=== PATIENT | male | born 1945 | race Caucasian/White ===

== ENCOUNTER 2016-11-23 13:00 | Inpatient (IN) | payer MEDICARE ==
[2016-12-04] MEDS ORDERED: Sodium Chloride 0.9% 10 ML ONE (08:58)
[2016-12-04] MEDS ORDERED: Fentanyl 100 MCG/2 ML VIAL ONE ×5 (09:06→11:44)
[2016-12-04] MEDS ORDERED: Ketorolac Tromethamine 30 MG/ML VIAL ONE (09:20)
[2016-12-04] MEDS ORDERED: Succinylcholine Chloride 20 MG/ML 10 ml SYRINGE FS ONE (09:20)
[2016-12-04] MEDS ORDERED: Propofol 200 MG/20 ML VIAL ONE (09:20)
[2016-12-04] MEDS ORDERED: Metoclopramide HCl 10 MG/2 ML VIAL ONE (09:20)
[2016-12-04] MEDS ORDERED: Lidocaine 1% PF 5 ML VIAL ONE (09:20)
[2016-12-04] MEDS ORDERED: Dexamethasone 20 MG/5 ML VIAL ONE (09:20)
[2016-12-04] MEDS ORDERED: Glycopyrrolate 0.2 MG/ML 5 ML SYRINGE ONE (09:20)
[2016-12-04] MEDS ORDERED: Ondansetron HCl/PF 4 MG/2 ML Vial ONE (09:20)
[2016-12-04] MEDS ORDERED: diphenhydrAMINE HCl 50 MG/ML 1 ML VIAL IVP PRN (11:13)
[2016-12-04] MEDS ORDERED: tiZANidine HCl 4 MG TAB PO PRN (11:13)
[2016-12-04] MEDS ORDERED: Promethazine HCl 25 MG/ML VIAL IM PRN ×2 (11:13→12:21)
[2016-12-04] MEDS ORDERED: diphenhydrAMINE HCl 25 MG CAP PO PRN (11:13)
[2016-12-04] MEDS ORDERED: HYDROcodone/Acetaminophen 10/325 mg Tablet PO PRN (11:13)
[2016-12-04] MEDS ORDERED: Promethazine HCl 12.5 MG SUPP PR PRN (11:13)
[2016-12-04] MEDS ORDERED: Ondansetron HCl/PF 4 MG/2 ML Vial SLOW IVP PRN (11:13)
[2016-12-04] MEDS ORDERED: Morphine Sulfate 2 MG/ML SYRINGE SLOW IVP PRN (11:13)
[2016-12-04] MEDS ORDERED: Milk Of Magnesia 30 ML UDCUP PO PRN (11:13)
[2016-12-04] MEDS ORDERED: Promethazine HCl 25 MG/ML VIAL SLOW IVP PRN (12:21)
[2016-12-04] MEDS ORDERED: Ondansetron HCl/PF 4 MG/2 ML Vial IVP PRN (12:21)
--- NOTE | 2016-12-04 12:48 | OP ---
DATE OF PROCEDURE: 12/04/2016 SURGEON: Matt Summers M.D. POCKET GRINDER OPERATOR: KIMBERLY Hawkins PROCEDURE: Exploration spinal fusion L3 to L5, removal of hardware L3-L5, posterolateral arthrodesi s L2-3, extension of fusion to L2-3, pedicle screw instrumentation L2-3, laminectomy L2-3. PROCEDURE IN DETAIL: The patient was brought to the operating room and intubated. He was rolled in the prone position on gel-filled chest rolls. The previous incision was reopened and extended supe riorly. We identified the previous hardware and explored the region of the previous surgery and the re was no evidence of bony fusion. We removed the right-sided instrumentation with some difficulty given the nature of the soft components of the system. Given the difficulty with removing the hardw are on the right side I elected not to remove the hardware on the left side. After removing the carlos dware, we replaced the screws at L3, L4, and L5 and then placed a new screw at right L2 using latera l fluoroscopic guidance. A elizabeth was secured from L2 through L5 on the right, secured by nuts which w ere final tightened. The wound was then extensively irrigated, immaculate hemostasis was secured. A combination of demineralized bone matrix and local morselized autograft was laid over the laminar and posterolateral surfaces for the purpose of arthrodesis. Vancomycin powder was applied and the w ound was then closed in anatomic layers.
[2016-12-04] MEDS: Ketorolac Tromethamine 30 MG/ML VIAL IVP SCH ×3 (13:04→23:42)
[2016-12-04] MEDS: Tamsulosin HCl 0.4 MG CAP PO SCH (17:28)
--- NOTE | 2016-12-04 19:38 | CON ---
DATE OF CONSULTATION: 12/04/2016 PRIMARY CARE PHYSICIAN: Dr. Brayan Jacome. CONSULTING PHYSICIAN: Dr. Matt Summers. REASON FOR CONSULTATION: Atherosclerotic heart disease, BPH and dyslipidemia. HISTORY OF PRESENT ILLNESS: The patient is a 71-year-old male with a history of degenerative disk d isease with previous lumber spine fusion, who has been admitted to the inpatient service following e xploration of the spinal fusion L3-L5 with removal of hardware, L2-L3 arthrodesis and extension of f usion of L2-L3 with pedicle screw instrumentation and L2-L3 laminectomy. The patient tolerated the procedure well. He is currently in the inpatient Service. The patient endorses a history of benign prostatic hypertrophy for which he is on Flomax as well as a history of atherosclerotic heart disease and dyslipidemia for which he has been off of his medicat ions for the last 3 days as the patient ran out of his medications and has been unable to have time to go to the pharmacy to machine pecan picker his refills. The patient denies any difficulty with urination at p resent time. The patient denies any fevers, chills or sweats. Denies any weakness or numbness of h is lower extremities. Denies any difficulty with bowel movements. The patient does have concern of impending difficulties with urination. The patient is otherwise compliant with his home medications, which consistent Flomax, diltiazem, as pirin, and pravastatin. The patient denies any lightheadedness, dizziness, nausea, vomiting or abdo tatum pain. PAST MEDICAL HISTORY: 1. Atherosclerotic cardiovascular disease, nonobstructive with LAD of 30%, left circumflex 20% and right coronary artery 20% occlusions. 2. Dyslipidemia. 3. Benign prostatic hypertrophy. PAST SURGICAL HISTORY: 1. Spinal fusion in 2007. 2. On 12/04/2016, L3-L5 spinal fusion exploration with removal of hardware with L2-L3 arthrodesis a nd extension of fusion of L2-L3 with pedicle screw instrumentation and laminectomy. ALLERGIES: NKDA. SOCIAL HISTORY: The patient admits to dipping tobacco, otherwise negative for alcohol or drug use. The patient is . Medical power of claims attorney would be his spouse. CODE STATUS: FULL CODE. OUTPATIENT MEDICATIONS: Please see medication reconciliation form, which include pravastatin, aspir in, diltiazem CD 120 mg and Flomax 0.4 mg q.p.m. REVIEW OF SYSTEMS: A 14-point review of systems reviewed and negative with exception to HPI. PHYSICAL EXAMINATION: VITAL SIGNS: Temperature is 36.3, pulse of 80, respiratory rate 14, blood pressure 125/85. GENERAL: The patient is awake and alert, mild distress attributed to low back pain after surgery. LUNGS: Clear to auscultation bilaterally with equal expansion. No wheeze, rales or rhonchi. CARDIOVASCULAR: S1, S2, regular rate and no murmurs appreciated. Peripheral pulses are 2+ and symm etrical in all 4 extremities. ABDOMEN: Soft, nontender, nondistended. Hypoactive bowel sounds. MUSCULOSKELETAL: Midline surgical dressing on his lumbar spine has sanguinous discharge. NEUROLOGIC: Cranial nerves II-XII are grossly intact. No lower extremity sensory deficits. The pa tient moving extremities equally; however, full mobility exam not performed as the patient is curren tly postoperative status. PSYCHOLOGICAL: Alert and oriented x3. No psychomotor agitation. Appropriate mood, affect, insight and judgment. ASSESSMENT AND PLAN: 1. History of benign prostatic hypertrophy: The patient has been off of his Flomax for the last 3 days and with concurrent narcotic pain medications in the postoperative period. He has had an eleva sharri risk of develop urinary retention. His Flomax will be resumed and his usual dosing is in the ev ening. Orders have been reconciled. Nursing has been asked to obtain q.6 hours bladder scan should there be a volume greater than 200 mL, a straight catheterization will be performed to help decompr ess the bladder. 2. Atherosclerotic cardiovascular disease, nonobstructive: Continue with medical management, for w ramiro the patient is on statin therapy and diltiazem. 3. Dyslipidemia: Continue with pravastatin therapy. 4. Degenerative disk disease. The patient is postoperative after a spinal fusion and extension of fusion of L2-L3 with removal of hardware from L3-L5 per Orthopedic Surgery. 5. Deep venous thrombosis prophylaxis with sequential compression devices. Time spent approximately 40 minutes.
[2016-12-04] MEDS: Sodium Chloride 0.9% 1,000 ML IV SCH (20:15)
[2016-12-04] MEDS: HYDROcodone/Acetaminophen 10/325 mg Tablet PO PRN (21:14)
[2016-12-04] MEDS: Atorvastatin Calcium 10 MG TAB PO SCH (21:14)
[2016-12-04] MEDS: Mag-Al 1200 mg/1200 mg/30 ML UDCUP PO PRN (22:00)
[2016-12-05] MEDS: Sodium Chloride 0.9% 1,000 ML IV SCH ×2 (01:14→15:41)
[2016-12-05] MEDS: Mag-Al 1200 mg/1200 mg/30 ML UDCUP PO PRN ×2 (03:15→19:21)
[2016-12-05] MEDS: Ketorolac Tromethamine 30 MG/ML VIAL IVP SCH ×4 (05:22→23:12)
[2016-12-05] MEDS ORDERED: Tamsulosin HCl 0.4 MG CAP PO SCH (09:00)
--- NOTE | 2016-12-05 10:47 | PDOC.PN ---
- Subjective Encounter Start Date: 12/05/16 Encounter Start Time: 08:00 Pt seen for followup re: CAD. Denies chest pain, shortness of breath, fevers or chills. No nausea or vomiting. - Objective MAR Reviewed: Yes Vital Signs & Weight: Vital Signs (12 hours) Temp Pulse Resp BP BP Pulse Ox 12/05/16 08:21 63 137/77 12/05/16 08:00 97.4 F L 63 18 137/77 95 12/05/16 04:21 97.3 F L 60 18 153/88 H 94 L 12/05/16 00:56 97.9 F 66 18 123/74 93 L Weight Weight 5 lb 10 oz I&O: 12/04/16 12/05/16 12/06/16 06:59 06:59 06:59 Intake Total 1500 Output Total 1750 Balance -250 Phys Exam - Physical Examination Constitutional: NAD HEENT: moist MMs Neck: supple Respiratory: clear to auscultation bilateral Cardiovascular: RRR Gastrointestinal: soft Musculoskeletal: pulses present Neurological: moves all 4 limbs Psychiatric: normal affect Dx/Plan (1) CAD (coronary artery disease) Code(s): I25.10 - ATHSCL HEART DISEASE OF [place] CORONARY ARTERY W/O ANG PCTRS Status: Chronic (2) Dyslipidemia Code(s): E78.5 - HYPERLIPIDEMIA, UNSPECIFIED Status: Chronic (3) BPH (benign prostatic hyperplasia) Code(s): N40.0 - BENIGN PROSTATIC HYPERPLASIA WITHOUT LOWER URINRY TRACT SYMP Status: Chronic - Plan * .CAD stable. Continue diltiazem, monitor vital signs and titrate antihypertensives as needed. Continue atorvastatin. Continue tamsulosin. Review of Systems - Review of Systems Constitutional: negative: Fever, Chills, Sweats, Weakness, Malaise Respiratory: negative: Cough, Dry, Shortness of Breath, Hemoptysis, SOB with Excertion, Pleuritic Pain, Sputum, Wheezing Cardiovascular: negative: Chest Pain, Palpitations, Orthopnea, Paroxysmal Noc. Dyspnea, Edema, Light Headedness, Other - Medications/Allergies Allergies/Adverse Reactions: Allergies Allergy/AdvReac Type Severity Reaction Status Date / Time No Known Drug Allergies Allergy Verified 11/23/16 16:15 Medications: Current Medications Hydrocodone Bitart/Acetaminophen ([place] 10/325) 1 tab PO Q4H PRN PRN Reason: PAIN (1-3) Last Admin: 12/04/16 21:14 Dose: 1 tab Hydrocodone Bitart/Acetaminophen ([place] 10/325) 2 tab PO Q4H PRN PRN Reason: PAIN (4-6) Al Hydroxide/Mg Hydroxide (Maalox) 30 ml PO Q4H PRN PRN Reason: Heartburn or Indigestion Last Admin: 12/05/16 03:15 Dose: 30 ml Atorvastatin Calcium (Lipitor) 10 mg PO HS [facility] Last Admin: 12/04/16 21:14 Dose: 10 mg Cephalexin (Keflex) 500 mg PO QID [facility] Diltiazem HCl (Cardizem Cd) 120 mg PO DAILY [facility] Last Admin: 12/05/16 08:21 Dose: 120 mg Diphenhydramine HCl (Benadryl) 25 mg PO Q6H PRN PRN Reason: Itching Diphenhydramine HCl (Benadryl) 25 mg IVP Q6H PRN PRN Reason: Itching Sodium Chloride (Normal Saline 0.9%) 1,000 mls @ 75 mls/hr IV .[id number] [facility] Last Admin: 12/05/16 01:14 Dose: Not Given Ketorolac Tromethamine (Toradol) 15 mg IVP Q6HR [facility] Stop: 12/06/16 06:01 Last Admin: 12/05/16 05:22 Dose: 15 mg Magnesium Hydroxide (Milk Of Magnesium) 30 ml PO Q12H PRN PRN Reason: Constipation Morphine Sulfate (Morphine Sulfate) 2 mg SLOW IVP Q1H PRN PRN Reason: Moderate Breakthrough Pain Morphine Sulfate (Morphine Sulfate) 4 mg SLOW IVP Q1H PRN PRN Reason: Severe Breakthrough Pain Last Admin: 12/04/16 18:43 Dose: 4 mg Ondansetron HCl (Zofran) 4 mg SLOW IVP Q24H PRN PRN Reason: Nausea/Vomiting Last Admin: 12/04/16 22:00 Dose: 4 mg Pantoprazole Sodium (Protonix) 40 mg PO DAILY [facility] Promethazine HCl (Phenergan) 12.5 mg IM Q4H PRN PRN Reason: Nausea/Vomiting Last Admin: 12/05/16 08:50 Dose: 12.5 mg Promethazine HCl (Phenergan) 12.5 mg PO Q4H PRN PRN Reason: Nausea/Vomiting Last Admin: 12/04/16 18:40 Dose: 12.5 mg Promethazine HCl (Phenergan Suppository) 12.5 mg [place] Q4H PRN PRN Reason: Nausea/Vomiting Sodium Chloride (Flush - Normal Saline) 10 ml IVF Q12HR [facility] Last Admin: 12/04/16 23:02 Dose: Not Given Sodium Chloride (Flush - Normal Saline) 10 ml IVF PRN PRN PRN Reason: Saline Flush Tamsulosin HCl (Flomax) 0.4 mg PO HS [facility] Last Admin: 12/04/16 17:28 Dose: 0.4 mg Tizanidine HCl (Zanaflex) 4 mg PO Q6H PRN PRN Reason: MUSCLE SPASM Last Admin: 12/04/16 21:15 Dose: 4 mg
[2016-12-05] MEDS: Cephalexin 250 MG CAP PO SCH ×4 (11:01→20:02)
[2016-12-05] MEDS: HYDROcodone/Acetaminophen 10/325 mg Tablet PO PRN (18:42)
[2016-12-05] MEDS: Tamsulosin HCl 0.4 MG CAP PO SCH (20:02)
[2016-12-05] MEDS: Atorvastatin Calcium 10 MG TAB PO SCH (20:02)
[2016-12-05] MEDS ORDERED: Calcium Carbonate 500 MG ChewTAB PO PRN (21:22)
[2016-12-06] MEDS: Sodium Chloride 0.9% 1,000 ML IV SCH (02:43)
[2016-12-06] MEDS: Ketorolac Tromethamine 30 MG/ML VIAL IVP SCH (05:26)
[2016-12-06] MEDS: Cephalexin 250 MG CAP PO SCH (08:07)
--- NOTE | 2016-12-06 11:43 | PDOC.PN ---
- Subjective Encounter Start Date: 12/06/16 Encounter Start Time: 08:00 Pt seen for followup re: BPH. Denies chest pain, shortness of breath. denies difficulty urinating. No fevers. - Objective Vital Signs & Weight: Vital Signs (12 hours) Temp Pulse Resp BP BP Pulse Ox 12/06/16 08:07 81 123/64 12/06/16 08:00 98.0 F 81 16 97 12/06/16 07:50 98.0 F 81 16 123/64 97 12/06/16 04:48 98.3 F 70 16 109/70 97 12/05/16 23:59 98.1 F 65 17 132/74 94 L Weight Weight 5 lb 10 oz I&O: 12/05/16 12/06/16 12/07/16 06:59 06:59 06:59 Intake Total 1500 Output Total 1750 Balance -250 Phys Exam - Physical Examination Constitutional: NAD HEENT: moist MMs Neck: supple Respiratory: clear to auscultation bilateral Cardiovascular: RRR Gastrointestinal: soft Neurological: moves all 4 limbs Psychiatric: normal affect Skin: no rash Dx/Plan (1) BPH (benign prostatic hyperplasia) Code(s): N40.0 - BENIGN PROSTATIC HYPERPLASIA WITHOUT LOWER URINRY TRACT SYMP Status: Chronic (2) CAD (coronary artery disease) Code(s): I25.10 - ATHSCL HEART DISEASE OF [place] CORONARY ARTERY W/O ANG PCTRS Status: Chronic (3) Dyslipidemia Code(s): E78.5 - HYPERLIPIDEMIA, UNSPECIFIED Status: Chronic - Plan PT/OT, out of bed/ambulate * . Continue tamsulosin. Continue statin. Plan to discharge noted, will sign off. Review of Systems - Review of Systems Constitutional: negative: Fever, Chills, Sweats, Weakness, Malaise Cardiovascular: negative: Chest Pain, Palpitations, Orthopnea, Paroxysmal Noc. Dyspnea, Edema, Light Headedness Genitourinary: negative: Dysuria, Frequency, Incontinence, Hematuria, Retention - Medications/Allergies Allergies/Adverse Reactions: Allergies Allergy/AdvReac Type Severity Reaction Status Date / Time No Known Drug Allergies Allergy Verified 11/23/16 16:15 Medications: Current Medications Hydrocodone Bitart/Acetaminophen ([place] 10/325) 1 tab PO Q4H PRN PRN Reason: PAIN (1-3) Last Admin: 12/05/16 18:42 Dose: 1 tab Hydrocodone Bitart/Acetaminophen ([place] 10/325) 2 tab PO Q4H PRN PRN Reason: PAIN (4-6) Al Hydroxide/Mg Hydroxide (Maalox) 30 ml PO Q4H PRN PRN Reason: Heartburn or Indigestion Last Admin: 12/05/16 19:21 Dose: 30 ml Atorvastatin Calcium (Lipitor) 10 mg PO HS [facility] Last Admin: 12/05/16 20:02 Dose: 10 mg Calcium Carbonate (Tums) 500 mg PO PRN PRN PRN Reason: INDIGESTION Last Admin: 12/05/16 21:27 Dose: 500 mg Cephalexin (Keflex) 500 mg PO QID [facility] Last Admin: 12/06/16 08:07 Dose: 500 mg Diltiazem HCl (Cardizem Cd) 120 mg PO DAILY [facility] Last Admin: 12/06/16 08:07 Dose: 120 mg Diphenhydramine HCl (Benadryl) 25 mg PO Q6H PRN PRN Reason: Itching Diphenhydramine HCl (Benadryl) 25 mg IVP Q6H PRN PRN Reason: Itching Sodium Chloride (Normal Saline 0.9%) 1,000 mls @ 75 mls/hr IV .[id number] [facility] Last Admin: 12/06/16 02:43 Dose: Not Given Magnesium Hydroxide (Milk Of Magnesium) 30 ml PO Q12H PRN PRN Reason: Constipation Morphine Sulfate (Morphine Sulfate) 2 mg SLOW IVP Q1H PRN PRN Reason: Moderate Breakthrough Pain Morphine Sulfate (Morphine Sulfate) 4 mg SLOW IVP Q1H PRN PRN Reason: Severe Breakthrough Pain Last Admin: 12/04/16 18:43 Dose: 4 mg Ondansetron HCl (Zofran) 4 mg SLOW IVP Q24H PRN PRN Reason: Nausea/Vomiting Last Admin: 12/04/16 22:00 Dose: 4 mg Pantoprazole Sodium (Protonix) 40 mg PO DAILY [facility] Last Admin: 12/06/16 08:07 Dose: 40 mg Promethazine HCl (Phenergan) 12.5 mg IM Q4H PRN PRN Reason: Nausea/Vomiting Last Admin: 12/05/16 08:50 Dose: 12.5 mg Promethazine HCl (Phenergan) 12.5 mg PO Q4H PRN PRN Reason: Nausea/Vomiting Last Admin: 12/04/16 18:40 Dose: 12.5 mg Promethazine HCl (Phenergan Suppository) 12.5 mg [place] Q4H PRN PRN Reason: Nausea/Vomiting Sodium Chloride (Flush - Normal Saline) 10 ml IVF Q12HR [facility] Last Admin: 12/05/16 20:02 Dose: 10 ml Sodium Chloride (Flush - Normal Saline) 10 ml IVF PRN PRN PRN Reason: Saline Flush Tamsulosin HCl (Flomax) 0.4 mg PO HS [facility] Last Admin: 12/05/16 20:02 Dose: 0.4 mg Tizanidine HCl (Zanaflex) 4 mg PO Q6H PRN PRN Reason: MUSCLE SPASM Last Admin: 12/04/16 21:15 Dose: 4 mg
[2016-12-06 12:03] VITALS: BP 126/71; TEMP 97.9
== END 2016-12-06 12:44 | disposition home or self-care (01) | DRG 460 ==
LOC: SURG A 12-04 06:51 → SURG B 12-04 11:42
PROVIDERS: ADMIT Neurological Surgery; ATTEND Neurological Surgery
PROC: 0SG0071 Fusion of Lumbar Vertebral Joint with Autologous Tissue Substitute, Posterior Approach, Posterior Column, Open Approach (ICD-10-PCS; principal; 2016-12-04)
PROC: 0QW004Z Revision of Internal Fixation Device in Lumbar Vertebra, Open Approach (ICD-10-PCS; 2016-12-04)
DX: M47.26 Other spondylosis with radiculopathy, lumbar region (principal); E78.5 Hyperlipidemia, unspecified; N40.0 Benign prostatic hyperplasia without lower urinary tract symptoms; I25.10 Atherosclerotic heart disease of native coronary artery without angina pectoris; F17.220 Nicotine dependence, chewing tobacco, uncomplicated; Z98.1 Arthrodesis status
CPT/HCPCS: 76001; 96374; A4216; C1713; C1768; G8978-GP-CK; G8979-GP-CI; G8987-GO-CI; G8988-GO-CI; G8989-GO-CI; J0131; J1100; J1885; J2001; J2270; J2405; J2550; J2704; J2765; J3010; J3370; J3490

== ENCOUNTER 2016-11-23 15:58 | Outpatient (CLI) | payer MEDICARE ==
[2016-11-23 17:25] LABS: Hematocrit 42.8 % (42.0-52.0); Mean Platelet Volume 6.8 fL (7.4-10.4); Red Blood Cell (RBC) Count 4.43 mill/uL (4.70-6.10); White Blood Cell (WBC) Count 5.7 thou/uL (4.8-10.8)
[2016-11-23 18:00] LABS: Anion Gap 12 mmol/L (10-20); BUN (Urea Nitrogen) 10 mg/dL (8.4-25.7); Calc. Creatinine Clearance 0 mL/min (70-130); Calcium 9.9 mg/dL (7.8-10.44); Carbon Dioxide 27 mmol/L (23-31); Chloride 100 mmol/L (98-107); Estimated GFR-MDRD 67
== END 2016-11-23 15:59 | disposition home or self-care (01) ==
LOC: LABBT 15:58
PROVIDERS: ATTEND Neurological Surgery
DX: Z01.818 Encounter for other preprocedural examination (principal); M54.16 Radiculopathy, lumbar region
CPT/HCPCS: 80048; 85027; 87081

== ENCOUNTER 2016-12-21 15:51 | Outpatient (CLI) | payer MEDICARE ==
--- NOTE | 2016-12-21 18:06 | RAD ---
LUMBAR SPINE TWO VIEWS: 12/21/16 HISTORY: Low back pain with recent surgery. FINDINGS: Right L2 pedicle screws in place with bilateral screws at the L3-4-5 levels and right vertical elizabeth. Skin sonia are evident. Laminectomy defects are noted at the L4 and L5 levels. No perihardware nolan ency is demonstrated. Vertebral body heights are maintained. Disc space narrowing and gas disc pheno leann are most pronounced at the L3-4 level. Minimal degenerative retrolisthesis is also present at this level. There is osteophytosis throughout the vertebral body and facets. Osseous structures are demineralized. IMPRESSION: Postoperative and degenerative changes of the lumbar spine. POS: LIYAH
== END 2016-12-21 15:52 | disposition home or self-care (01) ==
LOC: TBSIIMAG 15:51
PROVIDERS: ATTEND Neurological Surgery
DX: M47.26 Other spondylosis with radiculopathy, lumbar region (principal); Z98.890 Other specified postprocedural states
CPT/HCPCS: 72100

== ENCOUNTER 2017-02-01 12:51 | Outpatient (CLI) | payer MEDICARE ==
--- NOTE | 2017-02-01 14:05 | RAD ---
LUMBAR SPINE RADIOGRAPHS 2-3 VIEW SERIES: Clinical history: Back surgery. Pain. FINDINGS: Hardware of the mid to lower lumbar spine is grossly stable in configuration. There has been removal of prior skin sonia. No interval development of significant perihardware lucency. Degenerative wyatt ges of the lumbar spine are redemonstrated. Partially imaged electronic device overlies the right hem ipelvis with leads traversing the vertebral column, ascending cephalad to the field of view. Incidental note of atherosclerosis. IMPRESSION: Stable post-operative lumbar spine. POS: LIYAH
== END 2017-02-01 12:52 | disposition home or self-care (01) ==
LOC: TBSIIMAG 12:51
PROVIDERS: ATTEND Neurological Surgery
DX: M51.36 Other intervertebral disc degeneration, lumbar region (principal); Z98.890 Other specified postprocedural states
CPT/HCPCS: 72100

== ENCOUNTER 2022-01-25 10:52 | Outpatient (CLI) | payer MEDICARE | END 2022-01-25 10:53 | disposition home or self-care (01) | LOC: RAD 10:52 | PROVIDERS: ATTEND Internal Medicine Critical Care Medicine | DX: R06.00 Dyspnea, unspecified (principal); J44.9 Chronic obstructive pulmonary disease, unspecified | CPT/HCPCS: 71046 ==

== ENCOUNTER 2022-09-07 11:33 | Inpatient (IN) | payer MEDICARE ==
[2022-09-07] MEDS ORDERED: Ipratropium/Albuterol 3 ML NEB NEB PRN (12:06)
[2022-09-07] MEDS ORDERED: tiZANidine HCl 4 MG TAB PO PRN (12:07)
[2022-09-07] MEDS ORDERED: Albuterol 200 PUFF (6.7GM INHALER) INH PRN (12:23)
[2022-09-07] MEDS ORDERED: diphenhydrAMINE 50 MG/ML VIAL IM PRN (13:06)
[2022-09-07] MEDS ORDERED: Promethazine HCl 25 MG/ML VIAL IM PRN (13:06)
[2022-09-07] MEDS ORDERED: FENTANYL 500 MCG/10 ML VIAL 2,000 MCG in Sodium Chloride 0.9% 60 ML IV PRN (13:06)
[2022-09-07] MEDS ORDERED: Naloxone HCl 0.4 mg/ml Vial IV PRN (13:06)
[2022-09-07] MEDS ORDERED: diphenhydrAMINE 25 MG CAP PO PRN (13:06)
[2022-09-07] MEDS ORDERED: diphenhydrAMINE 50 MG/ML VIAL IVP PRN (13:06)
[2022-09-07] MEDS ORDERED: Zolpidem Tartrate 5 MG TAB PO PRN (13:06)
[2022-09-07] MEDS ORDERED: Communication Order-Pharmacy FS SCH (13:15)
[2022-09-07] MEDS: Sodium Chloride 0.45% 1,000 ML IV SCH (13:47)
[2022-09-07] MEDS: Ipratropium/Albuterol 3 ML NEB NEB SCH ×3 (14:29→22:50)
[2022-09-07 15:31] LABS: #Basophils 0.1 thou/uL (0.0-0.2); #Eosinphils 0.1 thou/uL (0.0-0.7); #Monocytes 0.6 thou/uL (0.11-0.59); #Neutrophils 4.9 thou/uL (1.40-6.50); %Basophils 1.9 % (0.0-1.0); %Eosinophils 0.7 % (0.0-10.0); %Lymphocytes 17.5 % (21.0-51.0); %Monocytes 8.2 % (0.0-10.0); %Neutrophils 71.6 % (42.0-75.0); Hemoglobin 13.2 g/dL (14.0-18.0); Mean Corpuscular HGB CONC 32.4 g/dL (32.0-36.0); Mean Corpuscular Hemoglobin 31.2 pg (27.0-31.0); Mean Corpuscular Volume 96.5 fl (78.0-98.0); Mean Platelet Volume 9.3 fL (7.4-10.4); Platelet Count 148 10x3/uL (130-400); RBC Distribution Width 13.9 % (11.5-14.5); Red Blood Cell (RBC) Count 4.23 mill/uL (4.70-6.10); White Blood Cell (WBC) Count 6.9 10x3/uL (4.8-10.8)
[2022-09-07] MEDS ORDERED: Fentanyl CADD 100 ML IVPB PRN (15:31)
[2022-09-07 15:53] LABS: Anion Gap 11 mmol/L (10-20); BUN (Urea Nitrogen) 12 mg/dL (8.4-25.7); Calc. Creatinine Clearance 38 mL/min (70-130); Calcium 9.4 mg/dL (7.8-10.44); Carbon Dioxide 26 mmol/L (23-31); Chloride 103 mmol/L (98-107); Estimated GFR 63; Glucose 92 mg/dL (83-110); Potassium 4.5 mmol/L (3.5-5.1); Sodium 135 mmol/L (136-145)
[2022-09-07] MEDS: methylPREDNISolone Sod Succ 40 MG VIAL IVP SCH ×2 (17:15→23:59)
[2022-09-07] MEDS: Sulfameth/Trimethoprim DS 800-160mg TAB PO SCH (20:43)
[2022-09-07] MEDS: Metoprolol Tartrate 25 MG TAB PO SCH (23:59)
[2022-09-08] MEDS: Ipratropium/Albuterol 3 ML NEB NEB SCH ×6 (01:37→21:36)
[2022-09-08] MEDS: Sodium Chloride 0.45% 1,000 ML IV SCH ×2 (06:26→22:25)
[2022-09-08] MEDS: methylPREDNISolone Sod Succ 40 MG VIAL IVP SCH ×3 (06:27→18:14)
[2022-09-08] MEDS: Tamsulosin HCl 0.4 MG CAP PO SCH (08:34)
[2022-09-08] MEDS: Metoprolol Tartrate 25 MG TAB PO SCH ×2 (08:34→20:19)
[2022-09-08] MEDS: Sulfameth/Trimethoprim DS 800-160mg TAB PO SCH ×2 (08:34→20:19)
[2022-09-08] MEDS: Aspirin Chewable 81 MG TAB PO SCH (08:34)
[2022-09-08] MEDS: Atorvastatin Calcium 10 MG TAB PO SCH (08:35)
[2022-09-08 09:14] VITALS: BMI 16.2
[2022-09-08] MEDS ORDERED: Electrolyte Replacement Protocol 1 EACH FS SCH (16:15)
[2022-09-08] MEDS: Budesonide 0.5 MG/2 ML NEB NEB SCH (18:34)
[2022-09-08] MEDS: Ondansetron PF 4 MG/2 ML Vial IVP PRN (22:27)
[2022-09-09] MEDS: methylPREDNISolone Sod Succ 40 MG VIAL IVP SCH ×5 (00:16→23:53)
[2022-09-09] MEDS ORDERED: Guaifenesin DM 100-10/5 ML UDCUP PO PRN (00:25)
[2022-09-09] MEDS: Calcium Carbonate 500 MG ChewTAB PO PRN ×3 (02:09→17:44)
[2022-09-09] MEDS: Ipratropium/Albuterol 3 ML NEB NEB SCH ×6 (03:19→22:12)
[2022-09-09 05:34] LABS: Hemoglobin 14.7 g/dL (14.0-18.0); Mean Corpuscular HGB CONC 33.2 g/dL (32.0-36.0); Mean Corpuscular Hemoglobin 31.4 pg (27.0-31.0); Mean Corpuscular Volume 94.7 fl (78.0-98.0); Mean Platelet Volume 9.9 fL (7.4-10.4); Platelet Count 182 10x3/uL (130-400); RBC Distribution Width 13.9 % (11.5-14.5); Red Blood Cell (RBC) Count 4.68 mill/uL (4.70-6.10)
[2022-09-09 05:53] LABS: Anion Gap 17 mmol/L (10-20); BUN (Urea Nitrogen) 15 mg/dL (8.4-25.7); Calc. Creatinine Clearance 38 mL/min (70-130); Calcium 9.9 mg/dL (7.8-10.44); Carbon Dioxide 18 mmol/L (23-31); Chloride 98 mmol/L (98-107); Estimated GFR 63; Glucose 116 mg/dL (83-110); Potassium 5.1 mmol/L (3.5-5.1); Sodium 128 mmol/L (136-145)
[2022-09-09] MEDS: Budesonide 0.5 MG/2 ML NEB NEB SCH ×2 (07:37→17:11)
[2022-09-09] MEDS: Ondansetron PF 4 MG/2 ML Vial IVP PRN (08:28)
[2022-09-09] MEDS: Metoprolol Tartrate 25 MG TAB PO SCH ×2 (08:28→20:23)
[2022-09-09] MEDS: Atorvastatin Calcium 10 MG TAB PO SCH (08:28)
[2022-09-09] MEDS: Sulfameth/Trimethoprim DS 800-160mg TAB PO SCH ×2 (08:28→20:23)
[2022-09-09] MEDS: Tamsulosin HCl 0.4 MG CAP PO SCH (08:28)
[2022-09-09] MEDS: Aspirin Chewable 81 MG TAB PO SCH (08:28)
[2022-09-09] MEDS: Senokot S 8.6-50 MG TAB PO SCH (20:23)
[2022-09-10] MEDS: Ipratropium/Albuterol 3 ML NEB NEB SCH ×6 (02:13→21:51)
[2022-09-10] MEDS: Mag-Al 1200 mg/1200 mg/30 ML UDCUP PO PRN ×2 (03:45→12:45)
[2022-09-10 05:14] LABS: #Monocytes 0.7 thou/uL (0.11-0.59); #Neutrophils 12.6 thou/uL (1.40-6.50); %Basophils 0.1 % (0.0-1.0); %Neutrophils 91.4 % (42.0-75.0); Hemoglobin 13.9 g/dL (14.0-18.0); Mean Corpuscular HGB CONC 33.3 g/dL (32.0-36.0); Mean Corpuscular Hemoglobin 31.3 pg (27.0-31.0); Mean Corpuscular Volume 94.1 fl (78.0-98.0); Mean Platelet Volume 9.5 fL (7.4-10.4); Platelet Count 196 10x3/uL (130-400); Red Blood Cell (RBC) Count 4.44 mill/uL (4.70-6.10); White Blood Cell (WBC) Count 13.8 10x3/uL (4.8-10.8)
[2022-09-10 05:37] LABS: Anion Gap 13 mmol/L (10-20); BUN (Urea Nitrogen) 21 mg/dL (8.4-25.7); Calc. Creatinine Clearance 40 mL/min (70-130); Calcium 9.6 mg/dL (7.8-10.44); Carbon Dioxide 25 mmol/L (23-31); Chloride 93 mmol/L (98-107); Estimated GFR 63; Glucose 111 mg/dL (83-110); Potassium 5.4 mmol/L (3.5-5.1); Sodium 126 mmol/L (136-145)
[2022-09-10] MEDS: Budesonide 0.5 MG/2 ML NEB NEB SCH ×2 (05:59→18:44)
[2022-09-10] MEDS: methylPREDNISolone Sod Succ 40 MG VIAL IVP SCH ×3 (06:44→22:17)
[2022-09-10] MEDS ORDERED: HYDROcodone/Acetaminophen 5/325 mg Tablet PO PRN (08:33)
[2022-09-10] MEDS: Atorvastatin Calcium 10 MG TAB PO SCH (09:11)
[2022-09-10] MEDS: Metoprolol Tartrate 25 MG TAB PO SCH ×2 (09:11→20:15)
[2022-09-10] MEDS: Aspirin Chewable 81 MG TAB PO SCH (09:11)
[2022-09-10] MEDS: Tamsulosin HCl 0.4 MG CAP PO SCH (09:11)
[2022-09-10] MEDS: Polyethylene Glycol 3350 17 GM Packet PER TUBE SCH (09:11)
[2022-09-10] MEDS: Sulfameth/Trimethoprim DS 800-160mg TAB PO SCH ×2 (09:11→20:15)
[2022-09-10] MEDS: Senokot S 8.6-50 MG TAB PO SCH ×2 (09:11→20:15)
[2022-09-10] MEDS ORDERED: Ketorolac Tromethamine 10 MG TAB PO SCH (12:00)
[2022-09-10] MEDS: Ketorolac Tromethamine 30 MG/ML VIAL IVP SCH ×2 (12:30→19:24)
[2022-09-10] MEDS: tiZANidine HCl 4 MG TAB PO SCH ×3 (12:32→20:15)
[2022-09-11] MEDS: Ketorolac Tromethamine 30 MG/ML VIAL IVP SCH ×2 (00:22→05:46)
[2022-09-11 03:22] LABS: #Monocytes 0.4 thou/uL (0.11-0.59); #Neutrophils 5.8 thou/uL (1.40-6.50); %Basophils 0.2 % (0.0-1.0); %Lymphocytes 4.8 % (21.0-51.0); %Monocytes 6.5 % (0.0-10.0); Hemoglobin 11.6 g/dL (14.0-18.0); Mean Corpuscular HGB CONC 33.9 g/dL (32.0-36.0); Mean Corpuscular Volume 91.4 fl (78.0-98.0); Mean Platelet Volume 9.5 fL (7.4-10.4); Platelet Count 124 10x3/uL (130-400); RBC Distribution Width 13.7 % (11.5-14.5); Red Blood Cell (RBC) Count 3.74 mill/uL (4.70-6.10); White Blood Cell (WBC) Count 6.6 10x3/uL (4.8-10.8)
[2022-09-11] MEDS: Ipratropium/Albuterol 3 ML NEB NEB SCH ×6 (03:40→22:22)
[2022-09-11 03:50] LABS: Anion Gap 9 mmol/L (10-20); BUN (Urea Nitrogen) 28 mg/dL (8.4-25.7); Calc. Creatinine Clearance 36 mL/min (70-130); Calcium 8.6 mg/dL (7.8-10.44); Carbon Dioxide 29 mmol/L (23-31); Chloride 94 mmol/L (98-107); Estimated GFR 58; Glucose 124 mg/dL (83-110); Potassium 5.3 mmol/L (3.5-5.1); Sodium 127 mmol/L (136-145)
[2022-09-11] MEDS: methylPREDNISolone Sod Succ 40 MG VIAL IVP SCH ×3 (05:47→20:27)
[2022-09-11] MEDS: Budesonide 0.5 MG/2 ML NEB NEB SCH ×2 (06:04→18:58)
[2022-09-11] MEDS: Metoprolol Tartrate 25 MG TAB PO SCH ×3 (08:09→22:50)
[2022-09-11] MEDS: Sulfameth/Trimethoprim DS 800-160mg TAB PO SCH ×2 (08:09→20:28)
[2022-09-11] MEDS: tiZANidine HCl 4 MG TAB PO SCH ×3 (08:09→20:28)
[2022-09-11] MEDS: Polyethylene Glycol 3350 17 GM Packet PER TUBE SCH (08:09)
[2022-09-11] MEDS: Tamsulosin HCl 0.4 MG CAP PO SCH ×2 (08:09→20:28)
[2022-09-11] MEDS: Aspirin Chewable 81 MG TAB PO SCH (08:09)
[2022-09-11] MEDS: Atorvastatin Calcium 10 MG TAB PO SCH (08:10)
[2022-09-11] MEDS: Senokot S 8.6-50 MG TAB PO SCH ×2 (08:10→20:27)
[2022-09-11 13:08] VITALS: BP 138/71
[2022-09-11] MEDS: Acetaminophen 500 MG TAB PO PRN ×2 (15:01→23:34)
[2022-09-11] MEDS: Calcium Carbonate 500 MG ChewTAB PO PRN ×2 (15:33→20:28)
[2022-09-11] MEDS: Mag-Al 1200 mg/1200 mg/30 ML UDCUP PO PRN (20:28)
[2022-09-12] MEDS: Ipratropium/Albuterol 3 ML NEB NEB SCH ×3 (02:11→10:24)
[2022-09-12] MEDS: Budesonide 0.5 MG/2 ML NEB NEB SCH (06:28)
[2022-09-12] MEDS: Atorvastatin Calcium 10 MG TAB PO SCH (07:34)
[2022-09-12] MEDS: tiZANidine HCl 4 MG TAB PO SCH (07:34)
[2022-09-12] MEDS: Aspirin Chewable 81 MG TAB PO SCH (07:34)
[2022-09-12] MEDS: Senokot S 8.6-50 MG TAB PO SCH (07:34)
[2022-09-12] MEDS: Sulfameth/Trimethoprim DS 800-160mg TAB PO SCH (07:34)
[2022-09-12] MEDS: Calcium Carbonate 500 MG ChewTAB PO PRN (07:34)
[2022-09-12] MEDS: Tamsulosin HCl 0.4 MG CAP PO SCH (07:34)
[2022-09-12] MEDS: Polyethylene Glycol 3350 17 GM Packet PER TUBE SCH (07:34)
[2022-09-12] MEDS: Mag-Al 1200 mg/1200 mg/30 ML UDCUP PO PRN (07:34)
[2022-09-12] MEDS: methylPREDNISolone Sod Succ 40 MG VIAL IVP SCH (07:37)
[2022-09-12] MEDS: Metoprolol Tartrate 25 MG TAB PO SCH (07:38)
[2022-09-12 09:51] VITALS: TEMP 98
== END 2022-09-12 10:45 | disposition home or self-care (01) | DRG 189 ==
LOC: IMCU/EMU 11:46
PROVIDERS: ADMIT Internal Medicine Critical Care Medicine; ATTEND Internal Medicine Critical Care Medicine
DX: J96.21 Acute and chronic respiratory failure with hypoxia (principal); J44.1 Chronic obstructive pulmonary disease with (acute) exacerbation; R64 Cachexia; E87.1 Hypo-osmolality and hyponatremia; I10 Essential (primary) hypertension; N40.0 Benign prostatic hyperplasia without lower urinary tract symptoms; F17.290 Nicotine dependence, other tobacco product, uncomplicated; G89.29 Other chronic pain; Z79.899 Other long term (current) drug therapy; I25.10 Atherosclerotic heart disease of native coronary artery without angina pectoris; K59.00 Constipation, unspecified; Z68.1 Body mass index [BMI] 19.9 or less, adult; Z99.81 Dependence on supplemental oxygen; Z88.6 Allergy status to analgesic agent
CPT/HCPCS: 36415; 71046; 71250; 74018; 74177; 80048; 85025; 94640; J1650; J1885; J2405; J2920; J3010; J7620; J7626

== ENCOUNTER 2023-07-18 09:28 | Outpatient (CLI) | payer MEDICARE | END 2023-07-18 09:29 | disposition home or self-care (01) | LOC: RAD 09:28 | PROVIDERS: ATTEND Internal Medicine Critical Care Medicine | DX: R06.00 Dyspnea, unspecified (principal); J98.4 Other disorders of lung; I70.0 Atherosclerosis of aorta | CPT/HCPCS: 71046 ==

== ENCOUNTER 2024-01-01 16:39 | Emergency (ER) | payer MEDICARE ==
[~2024-01-01 16:39] MED LIST: Iopamidol-370 76% 500 ML MDV (1 ML CHARGE) ONE
[2024-01-01] MEDS ORDERED: fentaNYL 50 mcg/mL 1 mL Vial ONE ×2 (17:44→20:06)
[2024-01-01 18:20] LABS: #Basophils 0.13 10x3/uL (0.0-0.2); %Basophils 2.2 % (0.0-1.0); %Lymphocytes 16.4 % (21.0-51.0); %Neutrophils 69.1 % (42.0-75.0); Hematocrit 39.9 % (42.0-52.0); Hemoglobin 13.1 g/dL (14.0-18.0); Mean Corpuscular HGB CONC 32.8 g/dL (32.0-36.0); Mean Corpuscular Hemoglobin 30.3 pg (27.0-31.0); Mean Corpuscular Volume 92.1 fL (78.0-98.0); Mean Platelet Volume 9.9 fL (7.4-10.4); Platelet Count 159 10x3/uL (130-400); RBC Distribution Width 14.2 % (11.5-14.5); Red Blood Cell (RBC) Count 4.33 mill/uL (4.70-6.10)
[2024-01-01 18:38] LABS: ALT (SGPT) 6 U/L (8-55); AST (SGOT) 10 U/L (5-34); Albumin 3.3 g/dL (3.4-4.8); Alkaline Phosphatase 84 U/L (40-110); Anion Gap 8 mmol/L (10-20); BUN (Urea Nitrogen) 11 mg/dL (8.4-25.7); Bilirubin, Total 0.6 mg/dL (0.2-1.2); Calc. Creatinine Clearance 0 mL/min (70-130); Calcium 9.2 mg/dL (7.8-10.44); Carbon Dioxide 29 mmol/L (23-31); Chloride 99 mmol/L (98-107); Estimated GFR 90; Globulin 2.4 g/dL (2.4-3.5); Glucose 91 mg/dL (83-110); Lipase 14 U/L (8-78); Potassium 4.4 mmol/L (3.5-5.1); Protein, Total 5.7 g/dL (5.8-8.1); Sodium 132 mmol/L (136-145)
[2024-01-01 18:40] LABS: Troponin I Less than 0.010 ng/mL (< 0.028)
[2024-01-01 19:31] LABS: Bacteria/HPF None Seen HPF (None Seen); Bilirubin Negative (Negative); Blood, Urine Trace (Negative); CAUTI Indications for Culture Dysuria,urgency,freq; Clarity Clear (Clear); Glucose, Urine (Dipstick) Normal (Negative); Ketone, Urine Negative (Negative); Leukocyte Negative Leu/uL (Negative); Nitrite Negative (Negative); Protein, Urine (Dipstick) Negative (Neg-Trace); RBC/HPF 0-3 HPF (0-3); Specific Gravity, Urine 1.003 (1.002-1.036); Squamous Epithelial None Seen HPF (0-3); Urobilinogen Normal mg/dL (Less than 2); WBC/HPF 0-3 HPF (0-3)
[2024-01-01 19:34] LABS: Urine Culture Reflex No No
[2024-01-01] MEDS ORDERED: Ketorolac Tromethamine 30 MG (1 mL) VIAL ONE (23:57)
== END 2024-01-02 01:30 | disposition home or self-care (01) ==
LOC: ERS 16:39
DX: K40.30 Unilateral inguinal hernia, with obstruction, without gangrene, not specified as recurrent (principal); I71.43 Infrarenal abdominal aortic aneurysm, without rupture; R06.02 Shortness of breath; J44.9 Chronic obstructive pulmonary disease, unspecified; I25.2 Old myocardial infarction; Z95.811 Presence of heart assist device; Z87.891 Personal history of nicotine dependence; Z79.82 Long term (current) use of aspirin; Z79.899 Other long term (current) drug therapy
CPT/HCPCS: 71045; 74177; 80053; 81001; 83605; 83690; 83880; 84484; 85025; 93005; 96374; 96376; 99285; J1885; J3010; Q9967